=== PATIENT | male | born 1970 | race Caucasian/White ===

== ENCOUNTER 2017-04-24 11:20 | Emergency (ER) | payer OTHER ==
[~2017-04-24] VITALS: Ht 180.3 cm; Wt 86.2 kg
[~2017-04-24 11:20] MED LIST: KEFLEX500 MG PO; XANAX1 MG PO
[2017-04-24 12:34] LABS: BILIRUBIN NEGATIVE (NEGATIVE); BLOOD NEGATIVE (NEGATIVE); CLARITY CLEAR (CLEAR); COLOR YELLOW (YELLOW); GLUCOSE NEGATIVE (NEGATIVE); KETONE NEGATIVE (NEGATIVE); LEUKO ESTERASE NEGATIVE (NEGATIVE); NITRITE NEGATIVE (NEGATIVE); UROBILINOGEN 0.2 E.U./dl (0.2-1.0)
[2017-04-24 12:51] LABS: HEMATOCRIT 44.5 % (42.0-52.0); HEMOGLOBIN 15.7 g/dl (14.0-18.0); MEAN CELL VOLUME 85.2 fl (80.0-94.0); MEAN CORPUSCULAR HGB 30.1 pg (27.0-31.0); MEAN CORPUSCULAR HGB CONC 35.3 g/dl (33.0-37.0); MEAN PLATELET VOLUME 9.4 fl (9.6-12.3); PLATELET COUNT AUTOMATED 278 10*3/uL (130-400); RED BLOOD COUNT 5.22 10*6/uL (4.50-5.90); RED CELL DISTRI WIDTH 11.9 % (0-14.5); WHITE BLOOD COUNT 10.9 10*3/uL (4.8-10.8)
[2017-04-24 12:58] LABS: EPITHELIAL CELLS 0-2; FINE GRANULAR CAST 0-2; WBC 0-2 wbc/hpf (0-5)
[2017-04-24 13:00] LABS: ACT PARTIAL THROMBO TIME 23.7 SECONDS (20.8-31.5)
[2017-04-24 13:05] LABS: ALBUMIN 3.4 gm/dl (3.1-4.5); ALKALINE PHOSPHATASE 66 U/L (45-117); BUN 7 mg/dl (7-24); CHLORIDE 103 mmol/L (98-107); CREATININE 0.94 mg/dL (0.70-1.30); POTASSIUM 3.7 mmol/L (3.5-5.1); SGOT/AST 20 IU/L (3-35); SGPT/ALT 39 U/L (12-78); SODIUM 134 mmol/L (136-145); TOTAL PROTEIN 7.3 gm/dL (6.4-8.2)
[2017-04-24 13:08] LABS: ETHYL ALCOHOL < 3.0 mg/dl (<3)
[2017-04-24 13:11] LABS: URINE AMPHETAMINES < 1000 (1000ng/ml); URINE BARBITURATES < 200 (200ng/ml); URINE BENZODIAZEPINES < 200 (200ng/ml); URINE CANNABINOIDS (THC) < 50 (50ng/ml); URINE COCAINE < 300 (300ng/ml); URINE METHADONE < 300 (300ng/ml); URINE OPIATES < 300 (300ng/ml); URINE PHENCYCLIDINE < 25 (25ng/ml)
[2017-04-24 13:15] LABS: ATYPICAL LYMPHS 1 % (0-0); TOTAL CELLS COUNTED 100 #CELLS
[2017-04-24 13:16] LABS: PLATELET SUFFICIENCY NORMAL (NORMAL)
[2017-04-24] MEDS ORDERED: FLOMAX0.4 MG PO (13:45)
== END 2017-04-24 13:56 | disposition home or self-care (01) ==
LOC: ED 11:20
PROVIDERS: Emergency Medicine
DX: K64.5 Perianal venous thrombosis (principal); F17.200 Nicotine dependence, unspecified, uncomplicated; R33.9 Retention of urine, unspecified; Z88.0 Allergy status to penicillin; Z79.899 Other long term (current) drug therapy

== ENCOUNTER → 2017-10-13 | Outpatient (CLI) | payer OTHER ==
[~2017-10-13] MED LIST changes: +FLOMAX0.4 MG PO; +KLONOPIN2 M1 PO; +TRAZODONE100 MG PO
--- NOTE | ~2017-10-13 | ST ---
[place], [place] EXERCISE STRESS TEST REPORT NAME: CHANI JORDAN II [facility] #: [id number] UNIT #: [id number] ROOM: DOCTOR: MARCELO RICHARDS MD BIRTHDATE: [birth year] DOS: 10/13/2017 EXERCISE STRESS TEST INDICATIONS: Exertional dyspnea, cardiac risk factors. PROCEDURE: The patient walked on a full Robert protocol stress test for 10 minutes and stopped for fatigue and dyspnea. His resting heart rate of 82 irwin to 157, which represented 91% of his maximum predicted heart rate. His resting blood pressure of 152/98 irwin to 194/80. His oxygen saturation was greater than 95% throughout the study. Immediately in recovery, it was 92% transiently and then irwin to 97%. The resting electrocardiogram showed sinus rhythm and was a normal tracing. No ST changes occurred with exercise. He had no chest pain. The Gill treadmill score was 10 consistent with a low probability of coronary disease and a good prognosis. IMPRESSION: 1. Excellent exercise capacity without chest pain, arrhythmias, diagnostic ST changes or hypoxemia. 2. Gill treadmill score 10 consistent with a low probability of coronary disease. 3. Hypertensive blood pressure response to exercise. PLAN: The patient was instructed to maintain a low salt diet. He should practice a heart healthy lifestyle. We will be obtaining an echocardiogram and follow up with him after that. MARCELO RICHARDS MD CM:STRESS:EXERCISE STRESS TEST REPORT [id number] FORREST RICHARDS MD
== END | disposition home or self-care (01) ==
LOC: CARD 03:42
DX: I10 Essential (primary) hypertension (principal); R06.02 Shortness of breath; E78.2 Mixed hyperlipidemia; Z72.0 Tobacco use